=== PATIENT | female | born 1975 | race Caucasian/White ===

== ENCOUNTER 2019-08-02 09:05 | Emergency (ER) | payer SELFPAY ==
--- NOTE | 2019-08-02 09:44 | ER Document Report ---
ED Medical Screen (RME) - General Chief Complaint: High Blood Sugar Stated Complaint: SORE THROAT,COUGH Time Seen by Provider: 08/02/19 09:38 Primary Care Provider: YONI VALDES MD [Primary Care Provider] - Follow up as needed Mode of Arrival: Ambulatory Information source: Patient Notes: 43-year-old female presents to ED to ED for cough cold congestion elevated blood sugar elevated blood pressure and sore throat. She is a diabetic has a history of hypertension. Her sugar is very elevated at this time. She states she is very short of breath cough and congestion. Patient is alert oriented respirations are mildly labored. Will get blood sugar blood work chest x-ray and urine. I have greeted and performed a rapid initial assessment of this patient. A comprehensive ED assessment and evaluation of the patient, analysis of test results and completion of medical decision making process will be conducted by an additional ED providers. - Related Data Allergies/Adverse Reactions: tramadol Adverse Reaction (Verified 08/02/19 09:28) Past Medical History Pulmonary Medical History: Reports: Hx Asthma - Childhood, Hx Bronchitis, Hx Pneumonia Musculoskeltal Medical History: Reports Hx Musculoskeletal Trauma Traumatic Medical History: Reports: Hx Fractures Past Surgical History: Reports: Hx Appendectomy - Immunizations Immunizations up to date: Yes Hx Diphtheria, Pertussis, Tetanus Vaccination: Yes Physical Exam - Vital signs Vitals: Temp Pulse Resp BP Pulse Ox 98.2 F 90 18 166/114 H 97 08/02/19 09:07 08/02/19 09:07 08/02/19 09:07 08/02/19 09:07 08/02/19 09:07 Course - Vital Signs Vital signs: Temp Pulse Resp BP Pulse Ox 98.2 F 90 18 166/114 H 97 08/02/19 09:07 08/02/19 09:07 08/02/19 09:07 08/02/19 09:07 08/02/19 09:07 Doctor's Discharge - Discharge Referrals: YONI VALDES MD [Primary Care Provider] - Follow up as needed
--- NOTE | 2019-08-02 10:13 | RADIOLOGY REPORT (SQ) ---
EXAM DESCRIPTION: CHEST 2 VIEWS COMPLETED DATE/TIME: 08/02/2019 10:04 am REASON FOR STUDY: cough congestion HTN COMPARISON: PA and lateral views of the chest from 09/15/2013. EXAM PARAMETERS: NUMBER OF VIEWS: two views TECHNIQUE: Digital Frontal and Lateral radiographic views of the chest acquired. RADIATION DOSE: NA LIMITATIONS: none FINDINGS: LUNGS AND PLEURA: Low inspiratory lung volumes without a superimposed consolidation, pleur al effusion or pneumothorax. MEDIASTINUM AND HILAR STRUCTURES: No mediastinal or hilar contour abnormality. HEART AND VASCULAR STRUCTURES: The cardiomediastinal silhouette and pulmonary vasculature are within normal limits. BONES: No acute findings. HARDWARE: None in the chest. OTHER: No other finding. IMPRESSION: Low inspiratory lung volumes without a superimposed acute cardiopulmonary process. TECHNICAL DOCUMENTATION: JOB ID: [id number] [employer]- All Rights Reserved Reading location - IP/workstation name: [email or web address]
[2019-08-02 10:53] LABS: ABSOLUTE EOSINOPHILS # (AUTO) 0.2 10^3/uL (0.0-0.6); ABSOLUTE LYMPHOCYTES (AUTO) 1.2 10^3/uL (0.5-4.7); ABSOLUTE MONOCYTES (AUTO) 0.5 10^3/uL (0.1-1.4); ABSOLUTE NEUT (AUTO) 2.3 10^3/uL (1.7-8.2); BASOPHILS % (AUTO) 0.7 % (0-2); EOSINOPHILS % (AUTO) 3.7 % (0-6); HEMATOCRIT 41.7 % (36.0-47.0); HEMOGLOBIN 14.3 g/dL (12.0-15.5); LYMPHOCYTES % (AUTO) 28.9 % (13-45); MEAN CORPUSCULAR HGB CONC 34.3 g/dL (32.0-36.0); MEAN CORPUSCULAR VOLUME 87 fl (80-97); PLATELET COUNT 209 10^3/uL (150-450); RED BLOOD COUNT 4.77 10^6/uL (3.72-5.28); RED CELL DISTRIBUTION WIDTH 13.3 % (11.5-14.0); SEGMENTED NEUTROPHILS % (AUTO) 55.7 % (42-78); TOTAL CELLS COUNTED % (AUTO) 100 %; WHITE BLOOD COUNT 4.2 10^3/uL (4.0-10.5)
[2019-08-02 11:00] LABS: APPEARANCE,URINE CLOUDY; BILIRUBIN,URINE NEGATIVE (NEGATIVE); COLOR,URINE YELLOW; GLUCOSE, URINE 50 mg/dL (NEGATIVE); KETONES,URINE NEGATIVE (NEGATIVE); LEUKOCYTE ESTERASE,URINE LARGE (NEGATIVE); NITRITE,URINE NEGATIVE (NEGATIVE); PROTEIN,URINE 30 mg/dL (NEGATIVE); URINE SPECIFIC GRAVITY 1.028; UROBILINOGEN,URINE NEGATIVE mg/dL (<2.0)
[2019-08-02] MEDS ORDERED: IPRATROPIUM/ALBUTEROL 0.5-2.5 MG/3 ML AMPUL NEB ONE (11:06)
--- NOTE | 2019-08-02 11:16 | ER Document Report ---
ED General - General Chief Complaint: High Blood Sugar Stated Complaint: SORE THROAT,COUGH Time Seen by Provider: 08/02/19 09:38 Primary Care Provider: YONI VALDES MD [ACTIVE STAFF] - Follow up as needed Mode of Arrival: Ambulatory - [facility] Notes: Patient is a 43-year-old female with a history of hypertension and type 2 diabetes who presents complaining of nasal congestion/discharge, postnasal drip, sore throat, dry cough, and some mild wheezing that began 2 to 3 days ago. She has been exposed to another illness within the household. Patient states that she is able to eat and drink without difficulty. She is urinating normally and having normal bowel movements. Patient states that the thing that bothers her the most is the constant cough. No other concerns or complaints although she has noted some elevated blood sugar and blood pressure readings. Denies any headache, fever, neck pain, changes in vision/speech/mentation/hearing, chest pain, palpitations, syncope, shortness of breath, dyspnea, abdominal pain, nausea/vomiting/diarrhea, urinary retention, dysuria, hematuria, or rash. - Related Data Allergies/Adverse Reactions: tramadol Adverse Reaction (Verified 08/02/19 09:28) Past Medical History - General Information source: Patient - Social History Smoking Status: Former Smoker Family History: Arthritis, CAD, CVA, DM, Hyperlipidemia, Hypertension Patient has suicidal ideation: No Patient has homicidal ideation: No Pulmonary Medical History: Reports: Hx Asthma - Childhood, Hx Bronchitis, Hx Pneumonia Musculoskeletal Medical History: Reports Hx Musculoskeletal Trauma Traumatic Medical History: Reports: Hx Fractures Past Surgical History: Reports: Hx Appendectomy - Immunizations Immunizations up to date: Yes Hx Diphtheria, Pertussis, Tetanus Vaccination: Yes Review of Systems - Review of Systems -: Yes All other systems reviewed and negative Physical Exam - Vital signs Vitals: Temp Pulse Resp BP Pulse Ox 98.2 F 90 18 166/114 H 97 08/02/19 09:07 08/02/19 09:07 08/02/19 09:07 08/02/19 09:07 08/02/19 09:07 - Notes Notes: PHYSICAL EXAMINATION: GENERAL: Well-appearing, well-nourished and in no acute distress. A&Ox4. Answers questions appropriately. Moves comfortably w/o notable distress HEAD: Atraumatic, normocephalic. EYES: Pupils equal round and reactive to light, extraocular movements intact, sclera anicteric, conjunctiva are normal. ENT: Nares patent and with clear discharge. oropharynx mild erythema without exudates. No tonsilar hypertrophy without erythema or exudate. No palatine shift. Uvula midline. No tongue protrusion. No drooling, hoarseness, or airway compromise. Moist mucous membranes. No sinus tenderness. NECK: Normal range of motion, supple without lymphadenopathy. No rigidity/meningismus. LUNGS: Scant wheezes b/l primarily with expiration. No retractions. Dry cough audible HEART: Regular rate and rhythm without murmurs, rubs, gallops. ABDOMEN: Soft, nontender, nondistended abdomen. No guarding, no rebound. Normal bowel sounds present. No CVA tenderness bilaterally. NEUROLOGICAL: Normal speech, normal gait. PSYCH: Normal mood, normal affect. SKIN: Warm, Dry, normal turgor, no rashes or lesions noted. Course - Re-evaluation Re-evalutation: 08/02/19 Patient is an afebrile, well-hydrated, 43-year-old female who presents to the emergency department with an acute URI/pharyngitis, suspect viral. Vitals are acceptable without significant tachycardia, tachypnea, or hypoxia. PE is otherwise unremarkable. She is nontoxic-appearing and is tolerating p.o. without difficulty. Lungs are clear to auscultation bilaterally after breathing treatments provided. Rapid strep was negative with a throat culture pending. CXR unremarkable and CBC/CMP acceptable. UA I suspect to be contaminate. No further labs or imaging warranted at this time. Low suspicion for any meningitis, sepsis, peritonsillar/pharyngeal abscess, respiratory compromise, Víctor's, DKA, HHS, acute abd, pneumonia, or other emergent systemic condition a t this time. Patient is aware this condition can change from initial presentation and she needs to monitor symptoms closely. Conservative measures otherwise for symptoms. Recheck with your PCM in 2-3 days. Return to the ED with any worsening/concerning symptoms otherwise as reviewed in discharge. Patient is in agreement. - Vital Signs Vital signs: Temp Pulse Resp BP Pulse Ox 98.2 F 90 14 148/98 H 96 08/02/19 09:07 08/02/19 09:07 08/02/19 10:41 08/02/19 10:41 08/02/19 10:41 - Laboratory Result Diagrams: 08/02/19 10:32 08/02/19 10:32 Laboratory results interpreted by me: 08/02/19 08/02/19 08/02/19 10:32 10:32 10:49 Glucose 157 H POC Glucose 155 H Urine Protein 30 H Urine Glucose (UA) 50 H Urine Blood SMALL H Ur Leukocyte Esterase LARGE H Discharge - Discharge Clinical Impression: Acute URI Condition: Stable Disposition: HOME, SELF-CARE Instructions: Upper Respiratory Illness ([facility]) Additional Instructions: Maintain adequate fluid intake tylenol/ibuprofen as needed alternating every 3 hours for fever/body ache over the counter cold medication as needed for symptoms Humidified air may help Wash your hands regularly Wear a mask when coughing F/u: with your PCM in 2-3 days for a recheck Return to the ED with any fever, altered mental status/behavior, chest pain, palpitations, syncope, headache, neck pain/stiffness, shortness of breath, chest pains, wheezing, drooling, trouble swallowing/breathing, abdominal pain, n/v/d, rash, or worsening/concerning symptoms otherwise. Prescriptions: Benzonatate [Tessalon Perle 100 mg Capsule] 100 mg PO Q8HP PRN #15 cap PRN Reason: Albuterol Sulfate [Proair HFA Inhalation Aerosol 8.5 gm MDI] 2 puff IH Q4H PRN #1 mdi PRN Reason: Referrals: YONI VALDES MD [ACTIVE STAFF] - Follow up as needed
[2019-08-02 11:56] LABS: CALCIUM 9.1 mg/dL (8.4-10.2)
[2019-08-02 11:59] LABS: ANION GAP 10 (5-19); CHLORIDE 104 mmol/L (98-107); POTASSIUM 4.1 mmol/L (3.6-5.0)
[2019-08-02 12:01] LABS: ALBUMIN 4.1 g/dL (3.5-5.0); ALKALINE PHOSPHATASE 61 U/L (38-126); ASPARTATE AMINO TRANSFERASE 20 U/L (14-36); BILIRUBIN,DIRECT 0.1 mg/dL (0.0-0.4); BILIRUBIN,TOTAL 0.5 mg/dL (0.2-1.3); BLOOD UREA NITROGEN 20 mg/dL (7-20); CARBON DIOXIDE 25 mmol/L (22-30); GLUCOSE 157 mg/dL (75-110)
[2019-08-02 12:22] VITALS: BP 146/96
== END 2019-08-02 12:33 | disposition home or self-care (01) ==
LOC: ER 09:05
DX: J06.9 Acute upper respiratory infection, unspecified (principal); R05 Cough; R09.81 Nasal congestion; R09.82 Postnasal drip; J02.9 Acute pharyngitis, unspecified; R06.2 Wheezing; E11.9 Type 2 diabetes mellitus without complications; Z87.891 Personal history of nicotine dependence; Z87.01 Personal history of pneumonia (recurrent)
CPT/HCPCS: 94640; 99283; 36415; 87070; 87880; 82962; 85025; 80053; 81001; 71046; J7620

== ENCOUNTER 2020-03-29 20:22 | Emergency (ER) | payer SELFPAY ==
[2020-03-29 20:32] VITALS: BP 155/113
--- NOTE | 2020-03-29 20:54 | ER Document Report ---
ED Skin Rash/Insect Bite/Abscs - General Chief Complaint: Skin Problem Stated Complaint: SKIN PROBLEM Time Seen by Provider: 03/29/20 20:36 Primary Care Provider: [facility] [NO LOCAL MD] - Follow up as needed Information source: Patient, Friend Notes: Patient is a male comes emergency room with a 3-day onset of a small cellulitis/abscess on the left side of her face. Patient states that it started on Wednesday and she attempted to squeeze it and it got bigger over the next 2 days. She is wearing a mask on a continuous basis and she does believe that this may be part of the problem. Patient is also a [id number] diabetic. - HPI Patient complains to provider of: Skin rash/lesion, Tender/swollen area Onset: Other - 3 days Onset/Duration: Gradual Quality of pain: Achy, Throbbing Severity: Moderate Pain Level: 3 Skin Character: Abscess, Drainage, Erythema, Tenderness, Thickening, Warm Skin Temperature: Warm Quality of rash: Painful Identify cause: No - May be caused by facemask and humidity Exacerbated by: Denies Relieved by: Denies Similar symptoms previously: No Recently seen / treated by doctor: No - Related Data Allergies/Adverse Reactions: tramadol Adverse Reaction (Verified 08/02/19 09:28) Past Medical History - General Information source: Patient, Friend - Social History Smoking Status: Never Smoker Cigarette use (# per day): No Chew tobacco use (# tins/day): No Smoking Education Provided: No Frequency of alcohol use: None Family History: Reviewed & Not Pertinent, Arthritis, CAD, CVA, DM, Hyperlipi demia, Hypertension Pulmonary Medical History: Reports: Hx Asthma - Childhood, Hx Bronchitis, Hx Pneumonia Musculoskeletal Medical History: Reports Hx Musculoskeletal Trauma Traumatic Medical History: Reports: Hx Fractures Past Surgical History: Reports: Hx Appendectomy - Immunizations Immunizations up to date: Yes Hx Diphtheria, Pertussis, Tetanus Vaccination: Yes Review of Systems - Review of Systems Constitutional: No symptoms reported EENT: No symptoms reported Cardiovascular: No symptoms reported Respiratory: No symptoms reported Gastrointestinal: No symptoms reported Genitourinary: No symptoms reported Female Genitourinary: No symptoms reported Musculoskeletal: No symptoms reported Skin: See HPI, Lesions Hematologic/Lymphatic: No symptoms reported Neurological/Psychological: No symptoms reported -: Yes All other systems reviewed and negative Physical Exam - Vital signs Vitals: Temp Pulse Resp BP Pulse Ox 99.2 F 112 H 18 155/113 H 100 03/29/20 20:30 03/29/20 20:30 03/29/20 20:30 03/29/20 20:30 03/29/20 20:30 Interpretation: Hypertensive, Tachycardic - Notes Notes: PHYSICAL EXAMINATION: GENERAL: Well-appearing, well-nourished and in no acute distress. HEAD: , normocephalic. Patient's area concern is her left cheek primarily toward the zygomatic process. It is in an area that does stay covered by her mask. There is approximately a 2 cm x 2 cm erythematous area with in the center that a small pustule. Palpation of the area does not show any fluctuance there is very light swelling in the area at this present time to palpation. The 2 x 2 area is only slightly raised by about half a millimeter. And there does not feel any fluctuance between the internal portion of the oral cavity and the outside cheek. Therefore no abscess or I&D of the area at this time. EYES: Pupils equal round and reactive to light, extraocular movements intact, conjunctiva are normal. ENT: Nares patent, oropharynx clear without exudates. Moist mucous membranes. NECK: Normal range of motion, supple without lymphadenopathy LUNGS: Breath sounds clear to auscultation bilaterally and equal. No wheezes rales or rhonchi. HEART: Regular rate and rhythm without murmurs NEUROLOGICAL: Normal speech, normal gait. Normal sensory, motor exams PSYCH: Normal mood, normal affect. SKIN: Patient's area concern is described in facial below. At this point time there is no I&D that is necessary. The area apparently had some breakdown secondary to facial humidification secondary to mask wearing. Course - Re-evaluation Re-evalutation: 03/29/20 23:40 The area stated in the H&P does not need I&D at this time. Although there is a small pustule in the middle of the 2 x 2 area of puffiness. There is no fluctuance felt between the areas so at this point I used some alcohol with an 11 blade and just slightly opened up that pustule there was very little material that came out but it I felt that it would help not cause so much pressure in the area. I did try to express any other material inside and nothing came out. Patient has been instructed that if it should get bigger if the swelling get worse or if she noticed severe amounts of drainage coming out she is to return to ER for reevaluation. 03/29/20 23:41 - Vital Signs Vital signs: Temp Pulse Resp BP Pulse Ox 99.2 F 112 H 18 155/113 H 100 03/29/20 20:30 03/29/20 20:30 03/29/20 20:30 03/29/20 20:30 03/29/20 20:30 Discharge - Discharge Clinical Impression: Facial cellulitis Condition: Stable Disposition: HOME, SELF-CARE Instructions: Cellulitis ([facility]), MRSA Cellulitis ([facility]) Additional Instructions: Home and rest. Continue with the warm moist compresses as warm as you can stand up from the sink 2-3 times a day for several minutes each time. Do not attempt to pop the pimple again. But it open on its own. Take all the antibiotics. And as we discussed should it get bigger over the next 24 hours or you spike a fever or you have concerns that it is not up healing appropriately come back for reevaluation sooner. Prescriptions: Fluconazole [Diflucan] 150 mg PO ASDIR PRN #2 tablet PRN Reason: Doxycycline Hyclate 100 mg PO BID #20 tablet. Cephalexin Monohydrate [Keflex 500 mg Capsule] 500 mg PO Q6H 7 Days #28 capsule Forms: Elevated Blood Pressure, Return to Work Ref[facility]: [facility] [NO LOCAL MD] - Follow up as needed
== END 2020-03-29 21:00 | disposition home or self-care (01) ==
LOC: ER 20:22
DX: L03.211 Cellulitis of face (principal); L02.01 Cutaneous abscess of face; E11.9 Type 2 diabetes mellitus without complications; R21 Rash and other nonspecific skin eruption; Z88.8 Allergy status to other drugs, medicaments and biological substances
CPT/HCPCS: 99282